=== PATIENT | male | born 1995 | race Caucasian/White ===

== ENCOUNTER 2021-11-30 14:45 | Emergency (ER) | payer OTHER ==
[~2021-11-30] VITALS: Ht 172.7 cm; Wt 95.2 kg
[2021-11-30] MEDS ORDERED: DULOXETINE HCL20 MG PO (15:03)
[2021-11-30] MEDS ORDERED: ARIPIPRAZOLE15 MG PO (15:03)
[2021-11-30] MEDS ORDERED: ABILIFY15 MG PO (15:03)
[2021-11-30] MEDS ORDERED: DICLOFENAC POTA50 MG PO (15:03)
== END 2021-11-30 17:17 | disposition home or self-care (01) ==
LOC: ED 14:45
DX: R45.851 Suicidal ideations (principal); I10 Essential (primary) hypertension; Z79.899 Other long term (current) drug therapy; F31.9 Bipolar disorder, unspecified
CPT/HCPCS: 36415; 80053; 81001; 84443; 85025; 99285; G0480

== ENCOUNTER 2022-09-22 07:40 | Emergency (ER) | payer OTHER ==
[~2022-09-22] VITALS: Ht 172.7 cm; Wt 95.3 kg
[~2022-09-22 07:40] MED LIST: ABILIFY15 MG PO; ARIPIPRAZOLE15 MG PO; DICLOFENAC POTA50 MG PO; DULOXETINE HCL20 MG PO
[2022-09-22] MEDS ORDERED: ONDANSETRON ODT4 MG PO (11:55)
== END 2022-09-22 12:09 | disposition home or self-care (01) ==
LOC: ED 07:40
DX: R11.2 Nausea with vomiting, unspecified (principal); E86.0 Dehydration; E83.42 Hypomagnesemia; I10 Essential (primary) hypertension; Z79.899 Other long term (current) drug therapy
CPT/HCPCS: 36415; 80053; 81003; 83690; 83735; 85025; 96361; 96374; 96375; 99284-25; J1790; J2405; J3475; J7030